=== PATIENT | female | born 1975 | race Caucasian/White ===

== ENCOUNTER 2016-05-07 16:47 | Emergency (ER) | payer MEDICAID ==
[2016-05-07 17:08] VITALS: BMI 19.1
--- NOTE | 2016-05-07 18:05 | C.PDOC ---
Time Seen by Provider: 05/07/16 17:11 Chief Complaint (Nursing): ENT Problem Past Medical History Vital Signs: Last Vital Signs Temp 98.0 F 05/07/16 17:08 Pulse 77 05/07/16 17:08 Resp 20 05/07/16 17:08 BP 100/66 05/07/16 17:08 Pulse Ox 100 05/07/16 17:08 Family History: States: Unknown Family Hx - Social History Hx Alcohol Use: No Hx Substance Use: No - Immunization History Hx Tetanus Toxoid Vaccination: No Hx Influenza Vaccination: No Hx Pneumococcal Vaccination: No ED Course And Treatment O2 Sat by Pulse Oximetry: 100 Disposition - Disposition Disposition: HOME/ ROUTINE Disposition Time: 17:47 Condition: FAIR
--- NOTE | 2016-05-07 18:06 | C.PDOC ---
History Of Present Illness 40 y/o female complaining of sore throat with pain radiating into left ear x1 day. Denies any fever or other complaint. Time Seen by Provider: 05/07/16 17:11 Chief Complaint (Nursing): ENT Problem History Per: Patient Onset/Duration Of Symptoms: Days Current Symptoms Are (Timing): Still Present Symptoms Have Been: Continuous Severity: Moderate Anticoagulant/Antiplatlet Use?: No Recent Aspirin Use: No Past Medical History Reviewed: Nursing Documentation, Vital Signs Vital Signs: Last Vital Signs Temp 98.0 F 05/07/16 17:08 Pulse 77 05/07/16 17:08 Resp 20 05/07/16 17:08 BP 100/66 05/07/16 17:08 Pulse Ox 100 05/07/16 18:06 Family History: States: Unknown Family Hx - Social History Hx Alcohol Use: No Hx Substance Use: No - Immunization History Hx Tetanus Toxoid Vaccination: No Hx Influenza Vaccination: No Hx Pneumococcal Vaccination: No Review Of Systems Except As Marked, All Systems Reviewed And Found Negative. Constitutional: Negative for: Fever ENT: Positive for: Ear Pain, Throat Pain Physical Exam - Physical Exam Appears: Non-toxic, No Acute Distress Skin: Warm, Dry Head: Atraumatic Ear(s): Bilateral: Normal Nose: Normal Oral Mucosa: Moist Tongue: Normal Appearing Throat: Erythema, No Exudate Neck: Supple Lymphatic: Other (anterior cervical) Chest: Symmetrical, No Deformity Cardiovascular: Rhythm Regular Respiratory: Normal Breath Sounds Extremity: Normal ROM Neurological/Psych: Oriented x3, Normal Speech ED Course And Treatment O2 Sat by Pulse Oximetry: 100 Medical Decision Making Medical Decision Making: Initial Plan: - Motrin for pain - Amoxicillin On reassessment, patient is resting comfortably, and is in no acute distress. Patient was instructed to follow up with physician/clinic in 1-2 days for further evaluation. Disposition Doctor Will See Patient In The: Office Counseled Patient/Family Regarding: Diagnosis, Need For Followup - Disposition Referrals: Clinic,Med Surg [Primary Care Provider] - Disposition: HOME/ ROUTINE Disposition Time: 18:16 Condition: FAIR Additional Instructions: Follow up with PMD within 1-2 days. Return to ED if feel worse. Prescriptions: Amoxicillin 500 mg PO Q8 #30 tab Ibuprofen [Motrin Tab] 600 mg PO Q8 #30 tab Instructions: Pharyngitis (ED) - Clinical Impression Clinical Impression: Pharyngitis - Scribe Statement The provider has reviewed the documentation as recorded by the Scribe Nella Bravo
[2016-05-07 19:15] VITALS: BP 110/75; PULSE 98; RESP 17; TEMP 98.1
[2016-05-08 14:30] VITALS: O2SAT 100
== END 2016-05-07 19:13 | disposition home or self-care (01) ==
LOC: C.ER 16:47 → SUPCPDRO 16:47 → C.ER 19:13
DX: J02.9 Acute pharyngitis, unspecified (principal)

== ENCOUNTER 2016-11-05 16:54 | Emergency (ER) | payer MEDICAID ==
[2016-11-05 16:55] VITALS: BMI 19.1
[2016-11-05 17:00] VITALS: BP 103/66; PULSE 77; RESP 18; TEMP 97.9; O2SAT 100
--- NOTE | 2016-11-05 19:21 | C.PDOC ---
History Of Present Illness 41 y/o female presents to ED with complaints of itchy and painful rash to inner right thigh since last Saturday. Patient states she was indoor all day on Saturday and noticed mosquito bite that morning. Patient denies fever, chills, nausea, vomiting, headache or any other complaints at this time. Time Seen by Provider: 11/05/16 19:01 Chief Complaint (Nursing): Abnormal Skin Integrity History Per: Patient History/Exam Limitations: no limitations Onset/Duration Of Symptoms: Days Current Symptoms Are (Timing): Still Present Location Of Injury: Right: Thigh Quality Of Symptoms: Painful, Itching, Swollen Past Medical History Reviewed: Historical Data, Nursing Documentation, Vital Signs Vital Signs: Last Vital Signs Temp 97.9 F 11/05/16 16:57 Pulse 77 11/05/16 16:57 Resp 18 11/05/16 16:57 BP 103/66 11/05/16 16:57 Pulse Ox 100 11/05/16 19:22 Surgical History: No Surg Hx Family History: States: No Known Family Hx - Social History Hx Alcohol Use: No Hx Substance Use: No - Immunization History Hx Tetanus Toxoid Vaccination: No Hx Influenza Vaccination: No Hx Pneumococcal Vaccination: No Review Of Systems Except As Marked, All Systems Reviewed And Found Negative. Constitutional: Negative for: Fever, Chills Respiratory: Negative for: Shortness of Breath Gastrointestinal: Negative for: Nausea, Vomiting Musculoskeletal: Positive for: Leg Pain Skin: Positive for: Rash Neurological: Negative for: Weakness, Numbness, Headache Physical Exam - Physical Exam Appears: Non-toxic, No Acute Distress Skin: Warm, Dry, Rash (Tenderness, swollen and erythema to 30cm rash on right inner thigh) Head: Atraumatic, Normacephalic Eye(s): bilateral: Normal Inspection Oral Mucosa: Moist Neck: Normal ROM, Supple Chest: Symmetrical Cardiovascular: Rhythm Regular, No Murmur Respiratory: Normal Breath Sounds, No Rales, No Rhonchi, No Wheezing Gastrointestinal/Abdominal: Soft, No Tenderness, No Guarding, No Rebound Extremity: Normal ROM, Capillary Refill (<2 seconds) Neurological/Psych: Oriented x3, Normal Motor, Normal Sensation ED Course And Treatment O2 Sat by Pulse Oximetry: 100 (RA) Pulse Ox Interpretation: Normal Medical Decision Making Medical Decision Making: cellulitis R medial thigh from insect bite 3 days ago LOW susp of MRSA Disposition Doctor Will See Patient In The: Office Counseled Patient/Family Regarding: Studies Performed, Diagnosis - Disposition Referrals: [facility] [Outside] [facility] [Outside] [facility] [Outside] Disposition: HOME/ ROUTINE Disposition Time: 19:22 Condition: GOOD Additional Instructions: kevin Keflex 500 mg (antibiotico) dos veces al wilber para cumplir 5 rivera Ibuprofeno/Advil 400-600 mg cada 6 horas fred necessario. [facility] en [facility] fred necessario Prescriptions: Cephalexin [Keflex] 500 mg PO Q12H #9 capsule Instructions: Cellulitis (ED) Forms: [employer] ([place]) Print Language: SCOTTISH - Clinical Impression Clinical Impression: Cellulitis - Scribe Statement The provider has reviewed the documentation as recorded by the Scribaron Villanueva All medical record entries made by the Lilianibaron were at my direction and personally dictated by me. I have reviewed the chart and agree that the record accurately reflects my personal performance of the history, physical exam, medical decision making, and the department course for this patient. I have also personally directed, reviewed, and agree with the discharge instructions and disposition.
== END 2016-11-05 19:44 | disposition home or self-care (01) ==
LOC: C.ER 16:54
DX: L03.115 Cellulitis of right lower limb (principal)

== ENCOUNTER 2017-04-10 13:39 | Emergency (ER) | payer MEDICAID ==
[2017-04-10 14:57] VITALS: BMI 21.6
[2017-04-10 15:01] VITALS: TEMP 98.4; O2SAT 100
--- NOTE | 2017-04-10 15:21 | C.PDOC ---
Time Seen by Provider: 04/10/17 15:17 Chief Complaint (Nursing): Flu-like Symptoms History Per: Patient Onset/Duration Of Symptoms: Days (1) Current Symptoms Are (Timing): Still Present Associated Symptoms: Fever, Cough, Myalgias, Nasal Congestion Severity: Moderate Additional History Per: Prior Records Past Medical History Reviewed: Historical Data, Nursing Documentation, Vital Signs Vital Signs: Last Vital Signs Temp 98.4 F 04/10/17 14:57 Pulse 86 04/10/17 14:57 Resp 16 04/10/17 14:57 BP 108/73 04/10/17 14:57 Pulse Ox 100 04/10/17 15:21 - Medical History PMH: No Chronic Diseases Surgical History: No Surg Hx Family History: States: Unknown Family Hx - Social History Hx Tobacco Use: No Hx Alcohol Use: No Hx Substance Use: No - Immunization History Hx Tetanus Toxoid Vaccination: No Hx Influenza Vaccination: No Hx Pneumococcal Vaccination: No Review Of Systems Except As Marked, All Systems Reviewed And Found Negative. Constitutional: Positive for: Fever ENT: Positive for: Nose Congestion Cardiovascular: Negative for: Chest Pain Respiratory: Positive for: Cough. Negative for: Shortness of Breath, Hemoptysis Gastrointestinal: Negative for: Vomiting, Abdominal Pain, Diarrhea Genitourinary: Negative for: Dysuria Musculoskeletal: Negative for: Neck Pain, Back Pain Skin: Negative for: Rash Neurological: Positive for: Headache. Negative for: Weakness, Numbness, Seizures, Altered Mental Status Physical Exam - Physical Exam Appears: Non-toxic, No Acute Distress Skin: Normal Color, Warm, Dry, No Rash Head: Atraumatic, Normacephalic Eye(s): bilateral: Normal Inspection, PERRL, EOMI Ear(s): Bilateral: Normal Oral Mucosa: Moist, No Drooling, No Trismus Neck: Normal ROM, Supple Lymphatic: No Adenopathy Cardiovascular: Rhythm Regular Respiratory: Normal Breath Sounds, No Accessory Muscle Use Gastrointestinal/Abdominal: Soft, No Tenderness Back: No CVA Tenderness Extremity: Normal ROM Neurological/Psych: Oriented x3, Normal Speech, Normal Motor, Normal Sensation ED Course And Treatment O2 Sat by Pulse Oximetry: 100 Pulse Ox Interpretation: Normal Disposition Counseled Patient/Family Regarding: Diagnosis, Need For Followup, Rx Given - Disposition Disposition: HOME/ ROUTINE Disposition Time: 15:40 Condition: STABLE Additional Instructions: Drink plenty of fluids. Follow up with your doctor within 2-3 days. Return to the ER if you develop shortness of breath, worsening of symptoms or if you have any other concerns. Prescriptions: Guaifenesin/Pseudoephedrne HCl [Mucinex D ER 600-60 mg Tablet] 1 each PO Q12 PRN #20 tab.er.12h PRN Reason: Cough And Congestion Ibuprofen [Motrin Tab] 400 mg PO TID PRN #30 tab PRN Reason: Fever >100.4 F Oseltamivir [Tamiflu] 75 mg PO BID #10 cap Instructions: Cough, Runny Nose, and the Common Cold (DC) Forms: [facility] ([place]), General Discharge Instructions - Clinical Impression Clinical Impression: Influenza-like illness
[2017-04-10 16:14] VITALS: BP 110/71; PULSE 88; RESP 18
== END 2017-04-10 16:14 | disposition home or self-care (01) ==
LOC: C.ER 13:39
DX: J11.1 Influenza due to unidentified influenza virus with other respiratory manifestations (principal)